=== PATIENT | male | born 1980 | race Caucasian/White ===

== ENCOUNTER 2016-10-18 13:08 | Emergency (ER) | payer SELFPAY ==
[2016-10-18] MEDS ORDERED: TETANUS,DIPHTHERIA,PERTUSSIS 1 EA SYG IM ONE (14:16)
--- NOTE | 2016-10-18 14:17 | ED.PDOC ---
History of Present Illness - General Chief Complaint: Laceration Time Seen by Provider: 10/18/16 14:07 Source: patient Exam Limitations: no limitations - History of Present Illness Initial Comments: Edson Crooks 36 y/o male stated accidentally injure left index finger with axe yesterday sustaining laceration Timing/Duration: yesterday Severity: mild Location: hands - left Improving Factors: nothing Worsening Factors: nothing Associated Symptoms: denies symptoms Allergies/Adverse Reactions: Allergies Penicillins Allergy (Unverified 12/21/12 14:03) Review of Systems - Review of Systems Constitutional: States: no symptoms reported EENTM: States: no symptoms reported Respiratory: States: no symptoms reported Cardiology: States: no symptoms reported Gastrointestinal/Abdominal: States: no symptoms reported Genitourinary: States: no symptoms reported Musculoskeletal: States: no symptoms reported Skin: States: see HPI Neurological: States: no symptoms reported Hematologic/Lymphatic: States: no symptoms reported Past Medical History (General) - Patient Medical History Hx Asthma: No Hx Hypertension: No Surgical History: no surgical history - Vaccination History Hx Tetanus, Diphtheria Vaccination: No - given ER Family Medical History - Family History Father Family History: No Known Physical Exam - Physical Exam General Appearance: Alert, No apparent distress Eyes, Ears, Nose, Throat Exam: PERRL/EOMI, normal ENT inspection, TMs normal Neck: non-tender, full range of motion, supple Cardiovascular/Chest: normal peripheral pulses, regular rate, rhythm, no murmur Respiratory: chest non-tender, lungs clear, no respiratory distress Gastrointestinal/Abdominal: normal bowel sounds, non tender, soft Back Exam: normal inspection Extremity: normal range of motion, no pedal edema, no calf tenderness Neurologic: no motor/sensory deficits, alert, oriented x 3 Skin Exam: warm/dry, normal color Skin Problem Location: upper extremities Skin Character: other - laceration with skin loss index finger left distal phalanx Lymphatic: no adenopathy Progress - Progress Progress: 10/18/16 14:21 cleansing of wound with hibiclens and sterile dressing applied. Departure - Departure Clinical Impression: Laceration of skin of finger Qualifiers: Encounter type: initial encounter Qualified Code(s): S61.209A - Unspecified open wound of unspecified finger without damage to nail, initial encounter Time of Disposition: 14:37 Disposition: Discharge to Home or Self Care Condition: Good Departure Forms: ED Discharge - Pt. Copy, Patient Portal Self Enrollment Instructions: DI for Avulsion Laceration (Not Requiring Sutures), DI for Minor Laceration Additional Instructions: Aleve (otc) one tablet 3 x a day for pain as needed.EXCUSE FROM WORK 10/18/2016; Return to work 10/19/16 no restrictions
[2016-10-19 08:08] VITALS: BP 118/78; TEMP 98; O2SAT 97
== END 2016-10-18 14:45 | disposition home or self-care (01) ==
LOC: ER 13:08
DX: S61.211A Laceration without foreign body of left index finger without damage to nail, initial encounter (principal); Z88.0 Allergy status to penicillin; Z23 Encounter for immunization; W27.0XXA Contact with workbench tool, initial encounter